=== PATIENT | male | born 1960 | race Caucasian/White ===

== ENCOUNTER 2021-05-26 18:34 | Emergency (ER) | payer BC ==
[2021-05-26 20:13] VITALS: BP 112/68; PULSE 114
--- NOTE | 2021-05-26 20:21 | EDM.PDOC ---
ED HPI GENERAL MEDICAL PROBLEM - General Chief Complaint: General Stated Complaint: CONGESTION Time Seen by Provider: 05/26/21 20:05 - History of Present Illness INITIAL COMMENTS - FREE TEXT/NARRATIVE: Pt has not felt well since Monday with cough and head congestion. Also headache over both eyes. He feels tired alot. He is concerned about Covid, which he did have previously and had been vaccinated. No SOB or wheezing. Bilateral Headache Pain Score (Numeric/FACES): 5 - Related Data Allergies Allergy/AdvReac Type Severity Reaction Status Date / Time No Known Allergies Allergy Verified 05/26/21 19:10 Home Meds: Home Meds PHENobarbital 60 mg PO BID 02/26/15 [History] Phenytoin Sodium Extended [Dilantin] 200 mg PO DAILY 02/26/15 [History] Past Medical History Cardiovascular History: Reports: Aneurysm Other Cardiovascular History: Aneurysm repair at 13 yrs of age Genitourinary History: Reports: UTI, Recurrent Neurological History: Reports: Seizure Other Neuro History: seizure disorder since aneurysm repair - Infectious Disease History Infectious Disease History: Reports: Other (See Below) Other Infectious Disease History: COVID 30 jul 2020 Social & Family History - Tobacco Use Tobacco Use Status *Q: Former Tobacco User Years of Tobacco use: 42 Used Tobacco, but Quit: Yes Month/Year Tobacco Last Used: 1999 - Recreational Drug Use Recreational Drug Use: No ED ROS GENERAL - Review of Systems Review Of Systems: Comprehensive ROS is negative, except as noted in HPI. Constitutional: Reports: Fatigue Respiratory: Reports: Cough Neurological: Reports: Headache (over both eyes.) ED EXAM, GENERAL - Physical Exam Exam: See Below General Appearance: Other (pt has mild nasal congestion.) Head: Other (No sinus tenderness over the Maxillary or frontal sinuses. He does have some pressure with light palpation over both eyes.) Course - Vital Signs Last Recorded V/S: Last Vital Signs Temp 99.4 F 05/26/21 20:08 Pulse 114 H 05/26/21 20:08 Resp 18 05/26/21 20:08 BP 112/68 05/26/21 20:08 Pulse Ox - Orders/Labs/Meds Labs: Laboratory Tests 05/26/21 Range/Units 19:11 SARS CoV-2 RNA Rapid ROBBIE Negative - Re-Assessments/Exams Free Text/Narrative Re-Assessment/Exam: 05/26/21 20:19 Covid is negative tonite. Pt does not want any further testing. I will treat as a viral illness. He is to go home, rest taking time off from work as needed. OTC meds as needed. Follow up as needed if symptoms get worse. Departure - Departure Time of Disposition: 20:15 Disposition: Home, Self-Care 01 Condition: Good Clinical Impression: Viral illness - Discharge Information *PRESCRIPTION DRUG MONITORING PROGRAM REVIEWED*: No *COPY OF PRESCRIPTION DRUG MONITORING REPORT IN PATIENT STEFFANY: No Instructions: Viral Respiratory Infection, [id number] Referrals: PCP,Unknown [Primary Care Provider] - Forms: ED Department Discharge Additional Instructions: Drink plenty of fluids, Tyl for fever, rest Sepsis Event Note (ED) - Evaluation Sepsis Screening Result: No Definite Risk - Focused Exam Vital Signs: Vital Signs Temp Pulse Resp BP 05/26/21 20:08 99.4 F 114 H 18 112/68 05/26/21 19:20 18
== END 2021-05-26 20:23 | disposition home or self-care (01) ==
LOC: LB.ED 18:34
DX: B34.9 Viral infection, unspecified (principal); Z87.891 Personal history of nicotine dependence; Z20.822 Contact with and (suspected) exposure to COVID-19
CPT/HCPCS: 99283; U0002